=== PATIENT | female | born 1995 | race Hispanic/Latino ===

== ENCOUNTER 2018-04-14 02:00 | Emergency (ER) | payer MEDICAID, OTHER ==
[2018-04-14] MEDS ORDERED: ACETAMINOPHEN EXTRA STRENGTH 500 MG TABLET ONE (02:54)
[2018-04-14] MEDS ORDERED: IBUPROFEN 600 MG TABLET ONE (02:54)
[2018-04-14] MEDS ORDERED: PENICILLIN G BENZATHINE LA 1.2 MILUNITS/2 ML SYG ONE (02:56)
== END 2018-04-14 03:27 | disposition home or self-care (01) ==
LOC: EDH 02:00
DX: J02.9 Acute pharyngitis, unspecified (principal)
CPT/HCPCS: 96372; 99283; J0561

== ENCOUNTER 2019-03-05 21:47 | Emergency (ER) | payer SELFPAY ==
[2019-03-05 22:13] LABS: APPEARANCE,URINE Clear (CLEAR); BILIRUBIN,URINE Negative (NEGATIVE); COLOR,URINE Yellow (YELLOW); GLUCOSE, URINE (UA) Negative (NEGATIVE); KETONES,URINE Negative (NEGATIVE); LEUKOCYTE ESTERASE ,URINE Small (NEGATIVE); NITRATE,URINE Negative (NEGATIVE); OCCULT BLOOD,URINE Negative (NEGATIVE); PROTEIN,URINE Trace mg/dL (NEGATIVE)
[2019-03-05 22:26] LABS: HCG,QUAL RESULT NEGATIVE (NEGATIVE)
[2019-03-05 22:27] LABS: BACTERIA,URINE Few /HPF (None Seen); MUCUS,URINE Rare LPF (None Seen); RBC,URINE None Seen /HPF (0-1); SQUAMOUS EPITHELIAL CELL,UR Rare /HPF (0-2); WBC,URINE 0-1 /HPF (0-1)
== END 2019-03-05 22:44 | disposition home or self-care (01) ==
LOC: EDH 21:47
DX: N30.00 Acute cystitis without hematuria (principal)
CPT/HCPCS: 81001; 81025; 87088

== ENCOUNTER 2024-08-24 10:01 | Emergency (ER) | payer SELFPAY ==
[~2024-08-24] VITALS: Ht 157.5 cm; Wt 72.1 kg
[2024-08-24] MEDS: acetaMINOPHEN 500 MG TABLET PO ONE (10:47)
[2024-08-24] MEDS: ketOROlac 15MG/ML VIAL (15MG/ML) IM ONE (10:58)
[2024-08-24 11:05] LABS: RAPID GROUP A STREP negative (NEGATIVE)
[2024-08-24 11:15] LABS: INFLUENZA TYPE A Negative For Type A (NEGATIVE); INFLUENZA TYPE B Negative For Type B (NEGATIVE)
[2024-08-24 11:22] LABS: COVID19 (SARS ANTIGEN RAPID) PRESUMPTIVE NEGATIVE (NEGATIVE)
[2024-08-24] MEDS ORDERED: AMOX875T2 PO (11:22)
--- NOTE | 2024-08-24 11:22 | ERN ---
General Chief Complaint: Earache Stated Complaint: RIGHT EAR PAIN Time Seen by MD: 10:06 Time Seen by Midlevel: 10:06 Source: patient History of Present Illness Initial Comments 28-year-old female who presents to the emergency department due to right ear pain and sore throat onset yesterday. Patient denies any chest pain, shortness of breath, fevers, difficulty swallowing or further associated symptoms. Denies significant past medical history. Allergies: Coded Allergies: No Known Drug Allergies (Unverified Allergy, Unknown, 03/05/19) Home Meds Active Scripts Amoxicillin (Amoxicillin) 875 Mg Tablet, 1 TAB PO BID for 7 Days, #14 TAB 0 Refills Prov:MARIELY MORALES 08/24/24 Past Medical History Past Medical History: No Pertinent History Past Surgical History: None Female( History) LMP: August 19, 2024 ROS Dictation Constitutional: Negative for fever,chills, and weight loss Eyes: Negative for injury, pain,redness, and discharge ENT: Positive for right ear pain, sore throat Negative for injury,pain or swelling Cardiovascular: Negative for chest pain, palpitations, and edema Respiratory: Negative for shortness of breath, cough, and wheezing, Abdomen/GI: Negative for abdominal pain, nausea, vomiting, diarrhea, and constipation Back: Negative for injury and pain : Negative for painful urination, bleeding or discharge MS/Extremity: Negative for injury and deformity Skin: Negative for rash, and discoloration Neuro: Negative for headache, weakness, numbness, tingling, and seizure Psych: Negative for suicide ideation, homicidal ideation, and hallucinations Physical Exam Physical Exam Dictation General: awake, alert, no acute distress Head/Face: Normocephalic, atraumatic Eyes: PERRL, EOMI, normal conjunctiva ENT: oral cavity clear, erythematous bulging right tympanic membrane, oral mucosa moist, bilateral tonsils mildly erythematous and swollen without exudates Neck: Supple, normal range of motion Cardiovascular: RRR, normal S1/S2 Respiratory: CTAB, no respiratory distress, no rales or wheezes Skin: Warm, dry, normal turgor, no rash MS/Extremity: Pulses equal, no cyanosis, neurovascular intact, FROM Neuro: COAx4, GCS 15, strength 5/5, CN 2-12 intact, normal cerebellar exam, normal gait Psych: Normal behavior, mood, and affect normal Results Laboratory and Microbiology Lab and Micro Result Laboratory Tests Test 08/24/24 10:44 Influenza Type A Antigen Negative For Type A Influenza Type B Antigen Negative For Type B SARS-CoV-2 Antigen (Rapid) PRESUMPTIVE NEGATIVE Group A Streptococcus Rapid negative (NEGATIVE) Labs Reviewed?: Yes MDM MDM: Differential diagnosis: Otitis media, viral illness, strep Rationale: 28-year-old female who presents to the emergency department due to right ear pain and sore throat onset yesterday. Patient denies any chest pain, shortness of breath, fevers, difficulty swallowing or further associated symptoms. Denies significant past medical history. Per physical examination otitis media noted to the right ear, tonsils bilaterally erythematous, mildly swollen. Acetaminophen ordered in the ED but patient requested something stronger, therefore ketorolac administered. Patient was educated on findings and diagnosis. Antibiotics prescribed for outpatient treatment. Advised to follow up with PCP. Return to the emergency department if any worsening symptoms. Patient verbalized understanding. Patient stable for discharge. There are no social concerns with this patient. I independently interpreted the test that were performed, results were reviewed by me and considered findings on radiology if ordered. Medical management and examination interpretation discussions were had by me with other qualified healthcare professionals as indicated for the patient's care. ED Course Orders Procedure Category Date Status Time Covid19 (Sars Antigen LAB 08/24/24 Complete Rapid) 10:12 Influenza Type A & B, LAB 08/24/24 Complete Rapid 10:12 Rapid (Group A Strep) LAB 08/24/24 Complete 10:12 Acetaminophen 500mg PHA 08/24/24 Complete Tab (Tylenol 500mg T 10:30 Ketorolac PHA 08/24/24 Complete Tromethamine 15mg/Ml 11:00 Current Medications Medications (Trade) Dose Ordered Sig/Sergo Route PRN Reason Start Time Stop Time Status Last Admin Dose Admin Acetaminophen (TYLenol 500MG TAB) 1,000 mg ONCE ONCE PO 08/24/24 10:30 08/24/24 10:31 DC Ketorolac Tromethamine (toRADol) 15 mg ONCE ONCE IM 08/24/24 11:00 08/24/24 11:01 DC 08/24/24 10:58 Vital Signs Date Time Temp Pulse Resp B/P (MAP) Pulse Ox O2 Delivery O2 Flow Rate FiO2 08/24/24 10:02 98.4 79 16 120/80 99 Room Air 0 DX & DISP Disposition: Discharge Departure Impression: Primary Impression: Otitis media Condition: Stable Scripts Amoxicillin (Amoxicillin) 875 Mg Tablet 1 TAB PO BID for 7 Days, #14 TAB 0 Refills Prov: MARIELY MORALES 08/24/24 Additional Instructions: Discharge home. Rest. Follow up with primary care in 24 hours. Return to the ER for any acute changes or worsening symptoms. If any medications were prescribed take as directed. Okay to continue home m edications unless otherwise discussed during your visit in the emergency room today. Patient was also advised to follow-up with primary care physician in 1 to 2 days for continued monitoring. Referrals: SELF,REFERRAL (PCP) I performed the substantive portion of the visit. I have reviewed and personally made and approve the management plan that is documented in the notes by myself or the JOAQUIN. I acknowledge full responsibility for the patient's management plan. MARIELY MORALES August 24, 2024 11:22
[2024-08-24 11:35] VITALS: BP 122/76; PULSE 80; RESP 16; TEMP 98.7; O2SAT 98
== END 2024-08-24 12:02 | disposition home or self-care (01) ==
LOC: EDH 10:01
DX: H66.91 Otitis media, unspecified, right ear (principal); Z20.822 Contact with and (suspected) exposure to COVID-19
CPT/HCPCS: 99283; 87426; 87880; 87804 ×2; 96372; J1885